=== PATIENT | female | born 1995 | race Caucasian/White ===

== ENCOUNTER 2016-10-15 04:22 | Emergency (ER) | payer OTHER ==
[~2016-10-15] VITALS: Ht 162.6 cm; Wt 78.2 kg
[~2016-10-15 04:22] MED LIST: HYDR-3240 PO; IBUP-1222 PO
[2016-10-15] MEDS ORDERED: GABA100C8 PO (04:47)
[2016-10-15] MEDS ORDERED: DULO30CA2 PO (04:47)
[2016-10-15] MEDS ORDERED: ONDA4TAB7 PO (04:48)
[2016-10-15] MEDS ORDERED: SODIUM CHLORIDE 0.9% 1,000ML IVBOLUS ONE (05:00)
[2016-10-15] MEDS ORDERED: MORPHINE SULFATE 4 MG/ML, 1ML IVPush PRN (05:00)
[2016-10-15] MEDS ORDERED: SODIUM CHLORIDE FLUSH 10ML SYR IVF ONE (05:00)
[2016-10-15] MEDS ORDERED: ONDANSETRON 2MG/ML, 2ML IVPush ONE (05:00)
[2016-10-15] MEDS ORDERED: MORPHINE SULFATE 4 MG/ML, 1ML ONE (05:01)
[2016-10-15] MEDS ORDERED: ONDANSETRON 2MG/ML, 2ML ONE (05:01)
[2016-10-15 05:41] LABS: ASPARTATE AMINO TRANSFERASE 12 U/L (15-37); BLOOD UREA NITROGEN 9 mg/dL (7-18)
[2016-10-15 05:59] LABS: PATH.CAST-FLAG NOT PRESENT; SPERM-FLAG NOT PRESENT; SRC-FLAG NOT PRESENT; XTAL-FLAG NOT PRESENT; YLC-FLAG NOT PRESENT
[2016-10-15 07:25] VITALS: BP 116/74
== END 2016-10-15 07:27 | disposition home or self-care (01) ==
LOC: ED 07:10
DX: N80.9 Endometriosis, unspecified (principal); R10.9 Unspecified abdominal pain; G89.29 Other chronic pain; J45.909 Unspecified asthma, uncomplicated; G43.909 Migraine, unspecified, not intractable, without status migrainosus
CPT/HCPCS: 36415; 76830; 80053; 81001; 83690; 84703; 85025; 87086; 96361; 96374; 96375; 99285; J2405; J7030

== ENCOUNTER 2017-08-28 14:12 | Day surgery (SDC) | payer MEDICAID, OTHER ==
[~2017-08-28] VITALS: Ht 160 cm; Wt 75.5 kg
[~2017-08-28 14:12] MED LIST changes: +CODE1CAP9 PO; +DULO30CA2 PO; +GABA-826 PO; +METH500T97 PO; +ONDA4TAB7 PO
[2017-08-28] MEDS ORDERED: LACTATED RINGERS 1,000 ML IV SCH ×2 (15:15→19:30)
[2017-08-28 15:18] VITALS: BP 132/88
[2017-08-28] MEDS ORDERED: PERCOCET PO (15:18)
[2017-08-28] MEDS ORDERED: BUPIVACAINE/PF 0.25% ONE (15:22)
[2017-08-28] MEDS ORDERED: EPINEPHRINE 1 MG/ML, 1ML ONE (15:22)
[2017-08-28] MEDS ORDERED: INDIGO CARMINE 0.8%, 5ML ONE (15:22)
[2017-08-28] MEDS ORDERED: FENTANYL PF 250 MCG/5ML ONE ×2 (15:33→16:29)
[2017-08-28] MEDS ORDERED: MIDAZOLAM 1 MG/ML, 2ML ONE ×2 (15:33→16:49)
[2017-08-28] MEDS ORDERED: PROPOFOL 10 MG/ML, 20ML ONE (15:41)
[2017-08-28] MEDS ORDERED: CLINDAMYCIN PMX 900MG/50ML ONE (15:41)
[2017-08-28] MEDS ORDERED: DEXAMETHASONE 4 MG/ML, 1ML ONE (15:41)
[2017-08-28] MEDS ORDERED: ROCURONIUM 10MG/ML,5ML ONE (15:41)
[2017-08-28 15:43] LABS: HCG UR SG 1.019 (1.003-1.030)
[2017-08-28] MEDS ORDERED: BUPIVACAINE/PF-EPI 0.25% 1:200K INFIL ONE (16:17)
[2017-08-28] MEDS ORDERED: INDIGO CARMINE 0.8%, 5ML IV ONE (16:17)
[2017-08-28] MEDS ORDERED: OXYcodone 5 MG/5 ML ORAL.SOL UDC PO PRN (16:30)
[2017-08-28] MEDS ORDERED: ONDANSETRON 2MG/ML, 2ML IVPush PRN (16:30)
[2017-08-28] MEDS ORDERED: PROMETHAZINE 25 MG/ML, 1ML IV PRN (16:30)
[2017-08-28] MEDS ORDERED: MEPERIDINE/PF 25MG/0.5ML IVPush PRN (16:30)
[2017-08-28] MEDS ORDERED: KETOROLAC 30 MG/1 ML IV PRN (16:30)
[2017-08-28] MEDS ORDERED: MORPHINE SULFATE 4 MG/ML, 1ML IV PRN (16:30)
[2017-08-28] MEDS ORDERED: ACETAMINOPHEN 325 MG TABLET PO PRN (16:30)
[2017-08-28] MEDS ORDERED: ACETAMINOPHEN 650 MG/20.3 ML UDC ONE (17:00)
[2017-08-28] MEDS ORDERED: OXYcodone 5 MG/5 ML ORAL.SOL UDC ONE (17:01)
[2017-08-28] MEDS ORDERED: FENTANYL PF 100 MCG/2ML ONE ×2 (17:01→17:53)
[2017-08-28] MEDS: FENTANYL PF 100 MCG/2ML IV PRN ×4 (17:03→17:59)
[2017-08-28] MEDS ORDERED: ONDANSETRON 2MG/ML, 2ML ONE (17:16)
[2017-08-28] MEDS ORDERED: MORPHINE SULFATE 4 MG/ML, 1ML ONE ×2 (17:29→19:21)
[2017-08-28] MEDS ORDERED: KETOROLAC 30 MG/1 ML ONE (17:40)
[2017-08-28] MEDS ORDERED: LORazepam 2 MG/ML, 1ML ONE (18:02)
[2017-08-28] MEDS ORDERED: LORazepam 2 MG/ML, 1ML IVPush STA (18:04)
[2017-08-28] MEDS ORDERED: LACTATED RINGERS 500 ML IVBOLUS ONE (19:30)
[2017-08-28] MEDS ORDERED: morphine SULFATE 10 MG/ML, 1ML IV PRN (19:30)
[2017-08-28] MEDS ORDERED: ONDANSETRON ODT 4 MG PO PRN (19:30)
[2017-08-28] MEDS ORDERED: ONDANSETRON 2MG/ML, 2ML IV PRN (19:30)
[2017-08-28] MEDS ORDERED: IBUPROFEN 600 MG TABLET PO PRN (19:30)
[2017-08-28] MEDS ORDERED: OXYcodone/APAP 5/325MG TABLET PO PRN (19:30)
== END 2017-08-28 21:15 | disposition home or self-care (01) ==
LOC: OR 14:12 → 4NOR 19:06 → UNDOADMIN 19:07 → 4NOR 19:07 → OR 19:36
PROVIDERS: ATTEND Obstetrics & Gynecology
DX: N92.0 Excessive and frequent menstruation with regular cycle (principal); N80.9 Endometriosis, unspecified; N94.4 Primary dysmenorrhea; N83.202 Unspecified ovarian cyst, left side; N73.6 Female pelvic peritoneal adhesions (postinfective); F17.210 Nicotine dependence, cigarettes, uncomplicated; G43.909 Migraine, unspecified, not intractable, without status migrainosus; Z72.89 Other problems related to lifestyle; Z88.1 Allergy status to other antibiotic agents; Z88.8 Allergy status to other drugs, medicaments and biological substances
CPT/HCPCS: 58350; 58662; 81025; J0171; J1100; J1885; J2060; J2250; J2270; J2704; J3010; J3490; J7120

== ENCOUNTER 2017-08-30 22:53 | Emergency (ER) | payer OTHER ==
[~2017-08-30] VITALS: Ht 160 cm; Wt 77.1 kg
[~2017-08-30 22:53] MED LIST changes: +PERCOCET PO
[2017-08-30] MEDS ORDERED: ONDANSETRON ODT 4 MG ONE (23:19)
[2017-08-30] MEDS ORDERED: MORPHINE SULFATE 4 MG/ML, 1ML ONE (23:19)
[2017-08-30] MEDS: MORPHINE SULFATE 4 MG/ML, 1ML IVPush PRN (23:28)
[2017-08-30] MEDS ORDERED: ONDANSETRON ODT 4 MG PO ONE (23:30)
[2017-08-30 23:41] LABS: MICROSCOPIC AUTO
[2017-08-30 23:42] LABS: CULTURE INDICATED? NO
[2017-08-30 23:46] LABS: BASOPHILS # (AUTO) 0.08 x10^3/uL (0-0.1); BASOPHILS % (AUTO) 1 % (0-1); EOSINOPHILS # (AUTO) 0.14 x10^3/uL (0-0.4); EOSINOPHILS % (AUTO) 1 % (1-7); LYMPHOCYTES # (AUTO) 4.81 x10^3/uL (1-3.4); LYMPHOCYTES % (AUTO) 41 % (22-44); MD NO; MEAN CORPUSCULAR HEMOGLOBIN 32.2 pg (27.0-34.8); MEAN CORPUSCULAR HGB CONC 34.2 g/dL (32.4-35.8); MEAN CORPUSCULAR VOLUME 94.2 fL (80-100); MEAN PLATELET VOLUME 8.3 fL (7.4-10.4); MONOCYTES # (AUTO) 0.58 x10^3/uL (0.2-0.8); MONOCYTES % (AUTO) 5 % (2-9); NEUTROPHILS # (AUTO) 6.07 x10^3/uL (1.8-6.8); NEUTROPHILS % (AUTO) 52 % (42-75); PLATELET COUNT 402 x10^3/uL (130-400); RED BLOOD COUNT 4.87 x10^6/uL (3.82-5.3); RED CELL DISTRIBUTION WIDTH 13.3 % (9.6-15.2)
[2017-08-30 23:57] LABS: ALANINE AMINOTRANSFERASE 16 U/L (12-78); ALBUMIN 3.8 g/dL (3.4-5.0); ANION GAP 7 mmol/L (5-15); CALCIUM 8.4 mg/dL (8.5-10.1); CHLORIDE 107 mmol/L (98-107); CREATININE 0.89 mg/dL (0.55-1.02)
[2017-08-31 00:01] LABS: ALKALINE PHOSPHATASE 76 U/L (45-117); TOTAL PROTEIN 7.7 g/dL (6.4-8.2)
[2017-08-31 00:03] LABS: BILIRUBIN,TOTAL < 0.1 mg/dL (0.2-1.0)
[2017-08-31] MEDS ORDERED: MORPHINE SULFATE 4 MG/ML, 1ML ONE (00:26)
[2017-08-31 00:28] VITALS: BP 130/90
[2017-08-31] MEDS: MORPHINE SULFATE 4 MG/ML, 1ML IVPush PRN (00:28)
== END 2017-08-31 00:48 ==
LOC: ED 23:34
DX: N83.202 Unspecified ovarian cyst, left side (principal); N93.8 Other specified abnormal uterine and vaginal bleeding; G89.29 Other chronic pain; R10.2 Pelvic and perineal pain; F17.200 Nicotine dependence, unspecified, uncomplicated; I10 Essential (primary) hypertension; G43.909 Migraine, unspecified, not intractable, without status migrainosus; J45.909 Unspecified asthma, uncomplicated
CPT/HCPCS: 36415; 76830; 80053; 81001; 83690; 84703; 85025; 93005; 96374; 96376; 99285; Q0162

== ENCOUNTER 2017-12-10 10:56 | Emergency (ER) | payer OTHER ==
[~2017-12-10] VITALS: Ht 157.5 cm; Wt 74.4 kg
[2017-12-10] MEDS ORDERED: SODIUM CHLORIDE 0.9% 1,000ML IVBOLUS ONE (12:00)
[2017-12-10] MEDS ORDERED: MORPHINE SULFATE 4 MG/ML, 1ML ONE ×2 (12:00→13:33)
[2017-12-10] MEDS ORDERED: ONDANSETRON 2MG/ML, 2ML ONE ×2 (12:00→13:33)
[2017-12-10] MEDS ORDERED: ONDANSETRON 2MG/ML, 2ML IVPush ONE ×2 (12:00→14:00)
[2017-12-10] MEDS ORDERED: SODIUM CHLORIDE FLUSH 10ML SYR IVF ONE (12:00)
[2017-12-10] MEDS ORDERED: OMNIPAQUE 350 MG/ML, 100ML BOTTLE ONE (12:06)
[2017-12-10 12:30] LABS: MICROSCOPIC INDICATED
[2017-12-10 12:31] LABS: CULTURE INDICATED? YES
[2017-12-10] MEDS: MORPHINE SULFATE 4 MG/ML, 1ML IVPush PRN ×2 (12:32→13:36)
[2017-12-10 12:52] LABS: BASOPHILS # (AUTO) 0.05 x10^3/uL (0-0.1); BASOPHILS % (AUTO) 1 % (0-1); EOSINOPHILS # (AUTO) 0.02 x10^3/uL (0-0.4); EOSINOPHILS % (AUTO) 0 % (1-7); LYMPHOCYTES # (AUTO) 2.86 x10^3/uL (1-3.4); LYMPHOCYTES % (AUTO) 29 % (22-44); MD NO; MEAN CORPUSCULAR HEMOGLOBIN 32.3 pg (27.0-34.8); MEAN CORPUSCULAR HGB CONC 34.8 g/dL (32.4-35.8); MEAN PLATELET VOLUME 8.7 fL (7.4-10.4); MONOCYTES # (AUTO) 0.41 x10^3/uL (0.2-0.8); MONOCYTES % (AUTO) 4 % (2-9); NEUTROPHILS # (AUTO) 6.71 x10^3/uL (1.8-6.8); NEUTROPHILS % (AUTO) 67 % (42-75); PLATELET COUNT 348 x10^3/uL (130-400); RED BLOOD COUNT 4.62 x10^6/uL (3.82-5.3); RED CELL DISTRIBUTION WIDTH 12.9 % (9.6-15.2)
[2017-12-10 12:55] LABS: ALBUMIN 3.9 g/dL (3.4-5.0); ANION GAP 8 mmol/L (5-15); CALCIUM 8.4 mg/dL (8.5-10.1); CHLORIDE 109 mmol/L (98-107)
[2017-12-10 13:00] LABS: ALANINE AMINOTRANSFERASE 18 U/L (12-78); ALKALINE PHOSPHATASE 59 U/L (45-117); BILIRUBIN,TOTAL 0.3 mg/dL (0.2-1.0); CREATININE 0.75 mg/dL (0.55-1.02); TOTAL PROTEIN 7.3 g/dL (6.4-8.2)
[2017-12-10 14:32] VITALS: BP 110/62
[2017-12-10] MEDS ORDERED: ONDA4TAB10 PO (14:35)
[2017-12-10] MEDS ORDERED: ESTR1TAB PO (14:35)
[2017-12-10] MEDS ORDERED: HYDR-882 PO (14:35)
== END 2017-12-10 14:59 | disposition home or self-care (01) ==
LOC: ED 14:23
DX: N83.292 Other ovarian cyst, left side (principal); R10.31 Right lower quadrant pain; I10 Essential (primary) hypertension; G43.909 Migraine, unspecified, not intractable, without status migrainosus; J45.909 Unspecified asthma, uncomplicated; R11.0 Nausea; R42 Dizziness and giddiness
CPT/HCPCS: 36415; 74177; 80053; 81001; 84703; 85025; 87086; 93005; 96361; 96374; 96375; 96376; 99285; J2405; J7030; Q9967

== ENCOUNTER 2018-02-17 12:57 | Emergency (ER) | payer OTHER ==
[~2018-02-17] VITALS: Ht 160 cm; Wt 72.8 kg
[~2018-02-17 12:57] MED LIST changes: +ESTR1TAB PO; +HYDR-3653 PO; +ONDA4TAB10 PO
[2018-02-17 13:39] LABS: BASOPHILS # (AUTO) 0.03 x10^3/uL (0-0.1); BASOPHILS % (AUTO) 0 % (0-1); EOSINOPHILS # (AUTO) 0.06 x10^3/uL (0-0.4); EOSINOPHILS % (AUTO) 1 % (1-7); LYMPHOCYTES # (AUTO) 2.16 x10^3/uL (1-3.4); LYMPHOCYTES % (AUTO) 29 % (22-44); MD NO; MEAN CORPUSCULAR HEMOGLOBIN 31.4 pg (27.0-34.8); MEAN CORPUSCULAR HGB CONC 34.1 g/dL (32.4-35.8); MEAN CORPUSCULAR VOLUME 92.1 fL (80-100); MEAN PLATELET VOLUME 8.3 fL (7.4-10.4); MONOCYTES % (AUTO) 6 % (2-9); NEUTROPHILS % (AUTO) 64 % (42-75); PLATELET COUNT 331 x10^3/uL (130-400); RED BLOOD COUNT 4.74 x10^6/uL (3.82-5.3); RED CELL DISTRIBUTION WIDTH 13.4 % (9.6-15.2)
[2018-02-17 13:50] LABS: ANION GAP 8 mmol/L (5-15); C-REACTIVE PROTEIN, QUANT 0.28 mg/dL (0.02-0.49); CHLORIDE 110 mmol/L (98-107)
[2018-02-17 14:15] LABS: MICROSCOPIC NOT IND
[2018-02-17 14:17] LABS: CULTURE INDICATED? NO
[2018-02-17 14:22] LABS: HCT (SEDRATE) 43.6 % (34.6-47.8)
[2018-02-17] MEDS ORDERED: HYDROcodone/APAP 5/325 TABLET ONE (14:27)
[2018-02-17 15:45] VITALS: BP 142/60
[2018-02-17] MEDS ORDERED: HYDROcodone/APAP 5/325 TABLET PO ONE (16:00)
== END 2018-02-17 15:47 | disposition home or self-care (01) ==
LOC: ED 13:40
DX: G89.29 Other chronic pain (principal); M25.551 Pain in right hip; R10.2 Pelvic and perineal pain; R20.2 Paresthesia of skin; J45.909 Unspecified asthma, uncomplicated; G43.909 Migraine, unspecified, not intractable, without status migrainosus; I10 Essential (primary) hypertension
CPT/HCPCS: 36415; 72110; 80048; 81003; 85025; 85651; 86140; 99285

== ENCOUNTER 2018-07-13 19:53 | Inpatient (IN) | payer OTHER ==
[~2018-07-13] VITALS: Ht 160 cm; Wt 69.2 kg
[2018-07-13] MEDS ORDERED: ONDANSETRON ODT 4 MG ONE (20:07)
[2018-07-13] MEDS ORDERED: IBUPROFEN 800 MG TABLET PO STA (20:08)
[2018-07-13] MEDS ORDERED: ONDANSETRON ODT 4 MG PO ONE (20:30)
[2018-07-13 20:31] LABS: BASOPHILS # (AUTO) 0.01 x10^3/uL (0-0.1); BASOPHILS % (AUTO) 0 % (0-1); EOSINOPHILS # (AUTO) 0.01 x10^3/uL (0-0.4); EOSINOPHILS % (AUTO) 0 % (1-7); LYMPHOCYTES % (AUTO) 8 % (22-44); MD NO; MEAN CORPUSCULAR HEMOGLOBIN 31.1 pg (27.0-34.8); MEAN CORPUSCULAR HGB CONC 32.6 g/dL (32.4-35.8); MEAN CORPUSCULAR VOLUME 95.2 fL (80-100); MEAN PLATELET VOLUME 7.9 fL (7.4-10.4); MONOCYTES % (AUTO) 3 % (2-9); NEUTROPHILS # (AUTO) 8.92 x10^3/uL (1.8-6.8); NEUTROPHILS % (AUTO) 89 % (42-75); PLATELET COUNT 330 x10^3/uL (130-400); RED BLOOD COUNT 4.81 x10^6/uL (3.82-5.3); RED CELL DISTRIBUTION WIDTH 13.6 % (9.6-15.2)
[2018-07-13] MEDS ORDERED: IBUPROFEN 800 MG TABLET ONE (20:35)
--- NOTE | 2018-07-13 20:41 | NUR ---
ASSUMED CARE OF PT. PT PRESENTS TO ED WITH C/O SEVERE PELVIC PAIN AND NON PRODUCTIVE COUGH. PT STATES SEVERE HX OF ENDOMETRIOSIS. SUPPOSED TO HAVE SURGERY ON THE . MILD AMOUNT OF DISTRESS AND DISCOMFORT. BREATHING REGULAR AND UNLABORED. PT MEDICATED PER Jul.20 RIGHTS VERIFIED PRIOR. AWAITING FURTHER EVAL AND ORDERS. WILL CONTINUE TO MONITOR.
[2018-07-13 20:43] LABS: ALANINE AMINOTRANSFERASE 24 U/L (12-78); ALBUMIN 4.2 g/dL (3.4-5.0); ANION GAP 5 mmol/L (5-15); CALCIUM 8.5 mg/dL (8.5-10.1); CHLORIDE 108 mmol/L (98-107); CREATININE 0.68 mg/dL (0.55-1.02)
--- NOTE | 2018-07-13 20:45 | NUR ---
UA COLLECT AND SENT TO LAB.
[2018-07-13 20:47] LABS: ALKALINE PHOSPHATASE 61 U/L (45-117); BILIRUBIN,TOTAL 0.2 mg/dL (0.2-1.0); TOTAL PROTEIN 7.4 g/dL (6.4-8.2)
--- NOTE | 2018-07-13 20:57 | NUR ---
REPORT TO LUCHO MUNOZ.
[2018-07-13 20:58] LABS: MICROSCOPIC AUTO
--- NOTE | 2018-07-13 20:58 | NUR ---
REPORT RECEIVED FROM LUCHO VELÁZQUEZ.
[2018-07-13 21:04] LABS: CULTURE INDICATED? YES
[2018-07-13] MEDS ORDERED: SODIUM CHLORIDE 0.9% 1,000 ML IV ONE (21:08)
[2018-07-13] MEDS ORDERED: CIPROFLOXACIN/PMX 400MG/200ML 100 ML IVPB ONE (21:30)
[2018-07-13] MEDS ORDERED: SODIUM CHLORIDE FLUSH 10ML SYR IVF ONE (21:30)
[2018-07-13] MEDS ORDERED: PROMETHAZINE 25 MG/ML, 1ML IM ONE (21:30)
[2018-07-13] MEDS ORDERED: PROMETHAZINE 25 MG/ML, 1ML ONE (21:34)
[2018-07-13] MEDS ORDERED: CIPROFLOXACIN/PMX 400MG/200ML 200 ML ONE (21:34)
[2018-07-13] MEDS ORDERED: MORPHINE SULFATE 4 MG/ML, 1ML ONE (21:35)
[2018-07-13] MEDS: MORPHINE SULFATE 4 MG/ML, 1ML IVPush PRN ×2 (21:40→22:31)
--- NOTE | 2018-07-13 21:44 | NUR ---
PT RESTING ON GURNEY, IV SITE STARTED, IV FLUIDS AND ABX INFUSING, MEDICATED PER MAR, MONITORS IN PLACE, SIDERAILS UP X2, CALL LIGHT WITHIN REACH. PT TO BE ADMITTED
[2018-07-13 22:13] VITALS: BP 107/73
[2018-07-13] MEDS: SODIUM CHLORIDE 0.9% 1,000 ML IV SCH (23:57)
[2018-07-14] MEDS ORDERED: KETOROLAC 30 MG/1 ML IV PRN
[2018-07-14] MEDS ORDERED: ONDANSETRON ODT 4 MG PO PRN
[2018-07-14] MEDS ORDERED: ACETAMINOPHEN 325 MG TABLET PO PRN
[2018-07-14] MEDS ORDERED: DOCUSATE 100 MG CAPSULE PO PRN
[2018-07-14] MEDS: TEMAZEPAM 15 MG CAPSULE PO PRN ×2 (00:05→23:15)
[2018-07-14] MEDS: LIDODERM 5% PATCH TD PRN ×2 (00:06→00:11)
[2018-07-14] MEDS ORDERED: NICOTINE 14MG/24 HR PATCH.TD24 TD ONE (00:30)
[2018-07-14] MEDS ORDERED: NICOTINE 14MG/24 HR PATCH.TD24 ONE (00:36)
[2018-07-14 04:00] VITALS: BP 104/66
[2018-07-14 05:31] LABS: ANION GAP 4 mmol/L (5-15); CALCIUM 8.1 mg/dL (8.5-10.1); CHLORIDE 112 mmol/L (98-107)
[2018-07-14 05:33] LABS: CREATININE 0.52 mg/dL (0.55-1.02)
[2018-07-14 05:48] LABS: BASOPHILS # (AUTO) 0.02 x10^3/uL (0-0.1); BASOPHILS % (AUTO) 0 % (0-1); EOSINOPHILS # (AUTO) 0.02 x10^3/uL (0-0.4); EOSINOPHILS % (AUTO) 0 % (1-7); LYMPHOCYTES % (AUTO) 13 % (22-44); MD NO; MEAN CORPUSCULAR HEMOGLOBIN 32.4 pg (27.0-34.8); MEAN CORPUSCULAR HGB CONC 34.6 g/dL (32.4-35.8); MEAN CORPUSCULAR VOLUME 93.7 fL (80-100); MEAN PLATELET VOLUME 8.4 fL (7.4-10.4); MONOCYTES # (AUTO) 0.59 x10^3/uL (0.2-0.8); MONOCYTES % (AUTO) 9 % (2-9); NEUTROPHILS # (AUTO) 5.22 x10^3/uL (1.8-6.8); NEUTROPHILS % (AUTO) 77 % (42-75); PLATELET COUNT 262 x10^3/uL (130-400); RED BLOOD COUNT 4.24 x10^6/uL (3.82-5.3); RED CELL DISTRIBUTION WIDTH 13.7 % (9.6-15.2)
[2018-07-14 07:39] VITALS: BP 107/69
[2018-07-14] MEDS: SODIUM CHLORIDE 0.9% 1,000 ML IV SCH ×2 (08:00→15:43)
[2018-07-14] MEDS: METHOCARBAMOL 500 MG TABLET PO SCH ×2 (08:51→20:25)
[2018-07-14] MEDS: IBUPROFEN 200 MG TABLET PO PRN ×3 (08:52→21:43)
[2018-07-14] MEDS: GUAIFENESIN/DM 100-10MG, 5ML UDC PO PRN ×3 (09:45→20:25)
[2018-07-14] MEDS: CIPROFLOXACIN/PMX 400MG/200ML 200 ML IV SCH ×2 (11:35→23:16)
[2018-07-14 13:30] VITALS: BP 98/62
[2018-07-14 15:51] LABS: ANION GAP 5 mmol/L (5-15); CALCIUM 7.8 mg/dL (8.5-10.1); CHLORIDE 111 mmol/L (98-107); CREATININE 0.51 mg/dL (0.55-1.02)
[2018-07-14 19:41] VITALS: BP 110/75
[2018-07-15 00:42] VITALS: BP 110/71
[2018-07-15] MEDS: GUAIFENESIN/DM 100-10MG, 5ML UDC PO PRN ×5 (00:56→19:47)
[2018-07-15] MEDS: PHENAZOPYRIDINE 100 MG TABLET PO SCH ×5 (01:28→19:46)
[2018-07-15] MEDS: IBUPROFEN 200 MG TABLET PO PRN ×4 (03:45→21:50)
[2018-07-15] MEDS ORDERED: PHENAZOPYRIDINE 200 MG TABLET ONE (08:37)
[2018-07-15] MEDS: METHOCARBAMOL 500 MG TABLET PO SCH ×2 (08:40→19:46)
[2018-07-15 08:44] VITALS: BP 103/70
[2018-07-15] MEDS ORDERED: SODIUM CHLORIDE 0.9% 1,000 ML IV SCH (11:00)
[2018-07-15] MEDS ORDERED: CEFTRIAXONE PMX 1GM/50ML 50 ML IV SCH (11:00)
[2018-07-15] MEDS ORDERED: DIPHENHYDRAMINE 50 MG/ML, 1ML IVPush ONE (11:30)
[2018-07-15 12:53] VITALS: BP 109/72
[2018-07-15 19:05] VITALS: BP 126/80
[2018-07-15] MEDS: TEMAZEPAM 15 MG CAPSULE PO PRN (21:49)
[2018-07-16] MEDS: GUAIFENESIN/DM 100-10MG, 5ML UDC PO PRN ×3 (00:10→08:33)
[2018-07-16 00:37] VITALS: BP 111/71
[2018-07-16] MEDS: IBUPROFEN 200 MG TABLET PO PRN ×2 (03:55→09:58)
[2018-07-16 08:00] VITALS: BP 91/53
[2018-07-16] MEDS ORDERED: CEFD300C37 PO (08:11)
[2018-07-16] MEDS: METHOCARBAMOL 500 MG TABLET PO SCH (08:25)
[2018-07-16] MEDS: PHENAZOPYRIDINE 100 MG TABLET PO SCH (08:25)
[2018-07-16] MEDS ORDERED: HYDR-3653 PO (08:52)
[2018-07-16 09:59] VITALS: BP 119/73
== END 2018-07-16 10:40 | disposition home or self-care (01) | DRG 690 ==
LOC: ED 21:10 → EDIP 21:33 → 4NOR 22:15 → DCLOUNGE 07-16 10:32
PROVIDERS: ADMIT Internal Medicine; ATTEND Internal Medicine
DX: N10 Acute pyelonephritis (principal); F17.210 Nicotine dependence, cigarettes, uncomplicated; G89.29 Other chronic pain; I10 Essential (primary) hypertension; J45.909 Unspecified asthma, uncomplicated; N80.9 Endometriosis, unspecified; Z82.49 Family history of ischemic heart disease and other diseases of the circulatory system; Z90.721 Acquired absence of ovaries, unilateral; Z71.6 Tobacco abuse counseling
CPT/HCPCS: 36415; 71046; 80048; 80053; 81001; 84703; 85025; 87077; 87086; 87186; 96365; 96372; G0378; J0696; J0744; J2550; Q0162; J7030

== ENCOUNTER 2018-10-27 19:11 | Emergency (ER) | payer OTHER ==
[~2018-10-27] VITALS: Ht 162.6 cm; Wt 67.4 kg
[~2018-10-27 19:11] MED LIST changes: +CEFD300C37 PO
[2018-10-27] MEDS ORDERED: PHENAZOPYRIDINE 200 MG TABLET ONE (19:35)
[2018-10-27] MEDS ORDERED: OXYcodone/APAP 5/325MG TABLET ONE (19:35)
[2018-10-27] MEDS ORDERED: ONDANSETRON ODT 4 MG ONE (19:35)
--- NOTE | 2018-10-27 19:42 | NUR ---
PT PRESENTING FOR ABD PAIN, BILATERAL FLANK PAIN, WORSE ON RIGHT SIDE, N/V AND PAINFUL URINATION X2 WKS. CONNECTED TO MONITORING, VSS. PT MEDICATED PER JUL. UA COLLECTED AND SENT TO LAB. LABS COLLECTED. CALL LIGHT JESUS CASTRO. AWAITING TESTING AND RESULTS AT THIS TIME
[2018-10-27] MEDS ORDERED: ELAG200T PO (19:46)
[2018-10-27 19:52] LABS: BASOPHILS # (AUTO) 0.05 x10^3/uL (0-0.1); BASOPHILS % (AUTO) 1 % (0-1); EOSINOPHILS # (AUTO) 0.03 x10^3/uL (0-0.4); EOSINOPHILS % (AUTO) 0 % (1-7); LYMPHOCYTES # (AUTO) 3.27 x10^3/uL (1-3.4); LYMPHOCYTES % (AUTO) 35 % (22-44); MD NO; MEAN CORPUSCULAR HEMOGLOBIN 31.7 pg (27.0-34.8); MEAN CORPUSCULAR HGB CONC 33.3 g/dL (32.4-35.8); MEAN PLATELET VOLUME 8.1 fL (7.4-10.4); MONOCYTES # (AUTO) 0.35 x10^3/uL (0.2-0.8); MONOCYTES % (AUTO) 4 % (2-9); NEUTROPHILS # (AUTO) 5.64 x10^3/uL (1.8-6.8); NEUTROPHILS % (AUTO) 60 % (42-75); PLATELET COUNT 323 x10^3/uL (130-400); RED BLOOD COUNT 4.78 x10^6/uL (3.82-5.3); RED CELL DISTRIBUTION WIDTH 12.6 % (9.6-15.2)
[2018-10-27] MEDS ORDERED: PHENAZOPYRIDINE 200 MG TABLET PO ONE (20:00)
[2018-10-27] MEDS ORDERED: ONDANSETRON ODT 4 MG PO ONE (20:00)
[2018-10-27] MEDS ORDERED: OXYcodone/APAP 5/325MG TABLET PO ONE (20:00)
[2018-10-27 20:02] LABS: ALANINE AMINOTRANSFERASE 19 U/L (12-78); ANION GAP 9 mmol/L (5-15); CHLORIDE 109 mmol/L (98-107)
[2018-10-27 20:07] LABS: ALKALINE PHOSPHATASE 54 U/L (45-117); BILIRUBIN,TOTAL 0.2 mg/dL (0.2-1.0); CREATININE 0.66 mg/dL (0.55-1.02); TOTAL PROTEIN 7.2 g/dL (6.4-8.2)
--- NOTE | 2018-10-27 20:09 | NUR ---
PT TAKEN TO US
[2018-10-27 20:11] LABS: CULTURE INDICATED? YES; MICROSCOPIC INDICATED
--- NOTE | 2018-10-27 20:27 | NUR ---
PT BACK FROM US. RAD AT BEDSIDE.
[2018-10-27] MEDS ORDERED: NITROFURANTOIN (MACROBID) 100 MG CAPSULE PO ONE (20:30)
[2018-10-27] MEDS ORDERED: NITROFURANTOIN (MACROBID) 100 MG CAPSULE ONE (20:45)
--- NOTE | 2018-10-27 20:47 | NUR ---
PT MEDICATED PER MAR WITH ABX. ALL RESULTS BACK AT THIS TIME, CHART UP FOR RECHECK
[2018-10-27 21:04] VITALS: BP 119/75
== END 2018-10-27 21:06 | disposition home or self-care (01) ==
LOC: ED 20:45
DX: N30.01 Acute cystitis with hematuria (principal); N80.9 Endometriosis, unspecified; J45.909 Unspecified asthma, uncomplicated; G43.909 Migraine, unspecified, not intractable, without status migrainosus; I10 Essential (primary) hypertension
CPT/HCPCS: 36415; 71045; 76830; 80053; 81001; 84703; 85025; 87077; 87086; 87186; 99284; Q0162

== ENCOUNTER 2019-03-25 08:09 | Emergency (ER) | payer OTHER ==
[~2019-03-25] VITALS: Ht 160 cm; Wt 66.8 kg
[~2019-03-25 08:09] MED LIST changes: +ELAG200T PO
--- NOTE | 2019-03-25 08:32 | NUR ---
PATIENT BROUGHT BACK FROM TRIAGE WITH CHIEF COMPLAINT OF BACK & PELVIC PAIN. THE PATIENT STATED INTERMITENT PAINFUL URINATION. THE PATIENT STATES SHE HAD RECENT HYSTERECTOMY IN NOVEMBER. THE PATIENT IS ALERT, ORIENTED, WARM AND DRY.
--- NOTE | 2019-03-25 08:38 | NUR ---
PATIENT DENIES SOB, VOMITING, OR CHEST PAIN.
[2019-03-25] MEDS ORDERED: ONDANSETRON 2MG/ML, 2ML ONE (09:17)
[2019-03-25] MEDS ORDERED: MORPHINE SULFATE 4 MG/ML, 1ML ONE (09:17)
[2019-03-25 09:23] LABS: BASOPHILS # (AUTO) 0.03 x10^3/uL (0-0.1); BASOPHILS % (AUTO) 0 % (0-1); EOSINOPHILS # (AUTO) 0.01 x10^3/uL (0-0.4); EOSINOPHILS % (AUTO) 0 % (1-7); LYMPHOCYTES # (AUTO) 1.72 x10^3/uL (1-3.4); LYMPHOCYTES % (AUTO) 15 % (22-44); MD NO; MEAN CORPUSCULAR HEMOGLOBIN 32.3 pg (27.0-34.8); MEAN CORPUSCULAR HGB CONC 33.5 g/dL (32.4-35.8); MEAN CORPUSCULAR VOLUME 96.3 fL (80-100); MEAN PLATELET VOLUME 8.1 fL (7.4-10.4); MONOCYTES # (AUTO) 0.28 x10^3/uL (0.2-0.8); MONOCYTES % (AUTO) 2 % (2-9); NEUTROPHILS # (AUTO) 9.54 x10^3/uL (1.8-6.8); NEUTROPHILS % (AUTO) 82 % (42-75); PLATELET COUNT 349 x10^3/uL (130-400); RED BLOOD COUNT 4.96 x10^6/uL (3.82-5.3); RED CELL DISTRIBUTION WIDTH 13.9 % (9.6-15.2)
[2019-03-25] MEDS ORDERED: MORPHINE SULFATE 4 MG/ML, 1ML IVPush PRN (09:30)
[2019-03-25] MEDS ORDERED: SODIUM CHLORIDE FLUSH 10ML SYR IVF ONE (09:30)
[2019-03-25] MEDS ORDERED: ONDANSETRON 2MG/ML, 2ML IVPush ONE (09:30)
--- NOTE | 2019-03-25 09:30 | NUR ---
Patient is resting comfortably in bed. Vital Signs within normal limits.
[2019-03-25 09:33] LABS: ALBUMIN 4.1 g/dL (3.4-5.0); ANION GAP 7 mmol/L (5-15); CALCIUM 8.8 mg/dL (8.5-10.1); CHLORIDE 109 mmol/L (98-107); CREATININE 0.63 mg/dL (0.55-1.02)
[2019-03-25 09:43] LABS: MICROSCOPIC INDICATED
[2019-03-25 09:58] LABS: CULTURE INDICATED? YES
--- NOTE | 2019-03-25 10:46 | NUR ---
CALL LIGHT IN REACH, NO COMPLAINTS AT THIS TIME.
--- NOTE | 2019-03-25 11:30 | NUR ---
WAYLON FALLON AT BEDSIDE TO DISCUSS POC
--- NOTE | 2019-03-25 11:47 | NUR ---
PATIENT TO IMAGING
[2019-03-25] MEDS ORDERED: OMNIPAQUE 350 MG/ML, 100ML BOTTLE ONE (11:59)
[2019-03-25 12:35] VITALS: BP 107/73
--- NOTE | 2019-03-25 13:07 | NUR ---
DISCHARGE INSTRUCTIONS REVIEWED
== END 2019-03-25 13:12 | disposition home or self-care (01) ==
LOC: ED 10:12
DX: R10.31 Right lower quadrant pain (principal); R11.0 Nausea; I10 Essential (primary) hypertension; G43.909 Migraine, unspecified, not intractable, without status migrainosus; J45.909 Unspecified asthma, uncomplicated
CPT/HCPCS: 36415; 74177; 80048; 81001; 82040; 85025; 87086; 96374; 96375; 99284; J2270; J2405; Q9967